=== PATIENT | female | born 1965 | race Two or more races ===

== ENCOUNTER 2017-12-13 01:17 | Emergency (ER) | payer MEDICAID ==
[~2017-12-13] VITALS: Ht 160 cm; Wt 131.8 kg
[~2017-12-13 01:17] MED LIST: ARIP30TA7 PO; DULO30CA51 PO; GABA-530 PO; METF500T PO
[2017-12-13 01:21] VITALS: BP 139/95
[2017-12-13] MEDS ORDERED: HYDR-569 PO (02:20)
[2017-12-13] MEDS ORDERED: NAPR-56 PO (02:20)
[2017-12-13] MEDS ORDERED: PENI500T2 PO (02:20)
[2017-12-13] MEDS ORDERED: penicillin V potassium 500mg tablet PO ONE (02:20)
[2017-12-13] MEDS ORDERED: naproxen 500mg tablet PO ONE (02:20)
[2017-12-13] MEDS ORDERED: HYDROcodone/acetaminophen 10/325mg tab PO ONE (02:20)
== END 2017-12-13 02:40 | disposition home or self-care (01) ==
LOC: ER 01:18
DX: K04.7 Periapical abscess without sinus (principal); K02.9 Dental caries, unspecified; I10 Essential (primary) hypertension; E11.9 Type 2 diabetes mellitus without complications; E78.00 Pure hypercholesterolemia, unspecified; Z88.5 Allergy status to narcotic agent; Z79.84 Long term (current) use of oral hypoglycemic drugs; Z79.899 Other long term (current) drug therapy
CPT/HCPCS: 99284

== ENCOUNTER 2018-04-20 18:04 | Emergency (ER) | payer MEDICAID ==
[~2018-04-20] VITALS: Ht 160 cm; Wt 87.0 kg
[~2018-04-20 18:04] MED LIST changes: +HYDR-4383 PO
[2018-04-20 18:08] VITALS: BP 144/102
== END 2018-04-20 19:56 | disposition left against medical advice (07) ==
LOC: ER 18:04
DX: R22.0 Localized swelling, mass and lump, head (principal); Z53.21 Procedure and treatment not carried out due to patient leaving prior to being seen by health care provider

== ENCOUNTER 2018-05-28 01:33 | Emergency (ER) | payer MEDICAID ==
[~2018-05-28] VITALS: Ht 160 cm; Wt 85.0 kg
[2018-05-28 01:41] VITALS: BP 135/93
[2018-05-28] MEDS ORDERED: CEPH-572 PO (03:33)
[2018-05-28] MEDS ORDERED: NAPR-56 PO (03:33)
[2018-05-28] MEDS ORDERED: cephalexin 500mg capsule PO ONE (03:35)
[2018-05-28] MEDS ORDERED: naproxen 500mg tablet PO ONE (03:35)
== END 2018-05-28 03:53 | disposition home or self-care (01) ==
LOC: ER 01:33
DX: H60.11 Cellulitis of right external ear (principal); L03.818 Cellulitis of other sites; E78.00 Pure hypercholesterolemia, unspecified; I10 Essential (primary) hypertension; E11.9 Type 2 diabetes mellitus without complications; Z98.890 Other specified postprocedural states; Z88.5 Allergy status to narcotic agent; Z79.2 Long term (current) use of antibiotics; Z79.899 Other long term (current) drug therapy
CPT/HCPCS: 99283

== ENCOUNTER 2020-11-06 21:44 | Emergency (ER) | payer MEDICAID ==
[~2020-11-06] VITALS: Ht 160 cm; Wt 67.0 kg
[~2020-11-06 21:44] MED LIST changes: -DULO30CA51 PO; +DULO30CA52 PO
[2020-11-06 22:09] VITALS: BP 141/84
[2020-11-06] MEDS ORDERED: proparacaine 0.5% ophthalmic drops 15ml EACHEYE ONE (23:00)
[2020-11-06] MEDS ORDERED: MOXI3DRO25 RIGHTEYE (23:13)
== END 2020-11-06 23:19 | disposition home or self-care (01) ==
LOC: ER 21:44
DX: H10.9 Unspecified conjunctivitis (principal); I10 Essential (primary) hypertension; E11.9 Type 2 diabetes mellitus without complications; E78.00 Pure hypercholesterolemia, unspecified; Z88.5 Allergy status to narcotic agent; Z79.899 Other long term (current) drug therapy
CPT/HCPCS: 99283

== ENCOUNTER 2020-11-19 04:31 | Emergency (ER) | payer MEDICAID ==
[~2020-11-19] VITALS: Ht 160 cm; Wt 70.0 kg
[2020-11-19 04:43] VITALS: BP 132/91
[2020-11-19] MEDS ORDERED: BENZ-16 PO (05:35)
[2020-11-19] MEDS ORDERED: benzonatate 100mg capsule PO ONE (05:40)
== END 2020-11-19 05:53 | disposition home or self-care (01) ==
LOC: ER 04:32
DX: J02.9 Acute pharyngitis, unspecified (principal); Z20.822 Contact with and (suspected) exposure to COVID-19; R05 Cough; R09.81 Nasal congestion; R11.0 Nausea; R19.7 Diarrhea, unspecified; R50.9 Fever, unspecified
CPT/HCPCS: 87635; 99283; C9803

== ENCOUNTER 2020-12-19 19:36 | Emergency (ER) | payer MEDICAID ==
[~2020-12-19] VITALS: Ht 160 cm; Wt 70.5 kg
[~2020-12-19 19:36] MED LIST changes: +BENZ-16 PO
[2020-12-19 20:02] LABS: BASOPHILS # (AUTO) 0.1 X10'3 (0-0.2); BASOPHILS % (AUTO) 0.7 % (0-1); EOSINOPHILS # (AUTO) 0.1 X10'3 (0-0.9); EOSINOPHILS % (AUTO) 0.8 % (0-6); HEMATOCRIT 40.2 % (35.0-45.0); HEMOGLOBIN 13.6 g/dl (12.0-16.0); LYMPHOCYTES # (AUTO) 1.8 X10'3 (1.1-4.8); LYMPHOCYTES % (AUTO) 24.2 % (21-51); MEAN CORPUSCULAR HEMOGLOBIN 31.1 PG (27.0-31.0); MEAN CORPUSCULAR HGB CONC 33.9 g/dL (33.0-36.5); MEAN CORPUSCULAR VOLUME 91.6 FL (78-98); MONOCYTES # (AUTO) 0.6 X10'3 (0-0.9); MONOCYTES % (AUTO) 7.7 % (2-12); NEUTROPHILS # (AUTO) 4.9 X10'3 (1.8-7.7); NEUTROPHILS % (AUTO) 66.6 % (42-75); PLATELET COUNT 215 X10'3 (140-440); RED BLOOD COUNT 4.39 X10'6 (4.20-5.60); RED CELL DISTRIBUTION WIDTH 14.5 % (11.5-14.5); WHITE BLOOD COUNT 7.3 X10'3 (4.5-11.0)
[2020-12-19] MEDS ORDERED: acetaminophen 325mg tablet PO ONE (20:25)
[2020-12-19 20:33] LABS: ALANINE AMINOTRANSFERASE 41 U/L (12-78); ALBUMIN 4.2 G/DL (3.4-5.0); ALBUMIN/GLOBULIN RATIO 1.1 (1.1-1.5); ALKALINE PHOSPHATASE 103 IU/L (46-116); ANION GAP 12 (8-16); ASPARTATE AMINO TRANSFERASE 47 U/L (10-37); BILIRUBIN,TOTAL 0.7 MG/DL (0.1-1.0); BLOOD UREA NITROGEN 9 MG/DL (7-18); BUN/CREATININE RATIO 9.8 (6.6-38.0); CALCIUM 9.3 MG/DL (8.5-10.1); CHLORIDE 106 MMOL/L (99-107); CREATININE 0.92 MG/DL (0.40-0.90); GLUCOSE 109 MG/DL (70-104); LIPASE 69 U/L (73-393); POTASSIUM 3.3 MMOL/L (3.5-5.1); SODIUM 144 MMOL/L (135-145); TOTAL CARBON DIOXIDE 26.1 MMOL/L (24-32); eGFR 64 ML/MIN
[2020-12-19 21:13] VITALS: BP 165/96
== END 2020-12-19 21:15 | disposition home or self-care (01) ==
LOC: ER 19:37
DX: R10.32 Left lower quadrant pain (principal); G89.29 Other chronic pain; E78.00 Pure hypercholesterolemia, unspecified; I10 Essential (primary) hypertension; E11.9 Type 2 diabetes mellitus without complications; Z98.890 Other specified postprocedural states; Z88.5 Allergy status to narcotic agent; Z79.899 Other long term (current) drug therapy
CPT/HCPCS: 36415; 76830; 80053; 83690; 85025; 93976; 99284

== ENCOUNTER 2022-12-18 09:44 | Emergency (ER) | payer MEDICAID ==
[~2022-12-18] VITALS: Ht 160 cm; Wt 79.0 kg
[~2022-12-18 09:44] MED LIST changes: -BENZ-16 PO
--- NOTE | 2022-12-18 10:01 | NUR ---
pt coming to er for wound on lip. started two days ago, reports she woke up don morning with wound. reports scratching it. has used ice, tylenol and ibuprofen. no hx cold sores, but had similar wound that was a spider bite approx one year ago.
[2022-12-18] MEDS ORDERED: CEPH500C2 PO (10:14)
[2022-12-18 10:47] VITALS: BP 157/117
== END 2022-12-18 10:49 | disposition home or self-care (01) ==
LOC: ER 09:45
DX: L08.9 Local infection of the skin and subcutaneous tissue, unspecified (principal); E78.00 Pure hypercholesterolemia, unspecified; I10 Essential (primary) hypertension; E11.9 Type 2 diabetes mellitus without complications; Z88.5 Allergy status to narcotic agent; Z98.890 Other specified postprocedural states
CPT/HCPCS: 99283